=== PATIENT | female | born 1990 | race Two or more races ===

== ENCOUNTER 2017-12-22 17:00 | Emergency (ER) | payer OTHER ==
[~2017-12-22] VITALS: Ht 167.6 cm; Wt 92.5 kg
[2017-12-22 17:23] VITALS: BP 138/87
[2017-12-22] MEDS ORDERED: ACETAMINOPHEN ES 500 MG TABLET ONE (17:45)
--- NOTE | 2017-12-22 17:47 | NUR ---
technician support engineer at bedside
[2017-12-22] MEDS ORDERED: ACETAMINOPHEN ES 500 MG TABLET PO ONE (18:00)
== END 2017-12-22 18:14 | disposition home or self-care (01) ==
LOC: ER 17:01
DX: O9A.213 Injury, poisoning and certain other consequences of external causes complicating pregnancy, third trimester (principal); M54.5 Low back pain; R10.9 Unspecified abdominal pain; Z3A.36 36 weeks gestation of pregnancy; V43.62XA Car passenger injured in collision with other type car in traffic accident, initial encounter; Y93.89 Activity, other specified; Y92.410 Unspecified street and highway as the place of occurrence of the external cause; Y99.8 Other external cause status
CPT/HCPCS: 76805-TC; A4606; Z7610

== ENCOUNTER 2018-10-14 18:20 | Emergency (ER) | payer OTHER ==
[~2018-10-14] VITALS: Ht 165.1 cm; Wt 87.7 kg
[2018-10-14 18:30] VITALS: BP 138/99
== END 2018-10-14 18:53 | disposition home or self-care (01) ==
LOC: ER 18:21
DX: R11.2 Nausea with vomiting, unspecified (principal); R19.7 Diarrhea, unspecified

== ENCOUNTER 2023-09-24 00:58 | Emergency (ER) | payer BC, OTHER ==
[~2023-09-24] VITALS: Ht 165.1 cm; Wt 94.3 kg
[2023-09-24 02:04] VITALS: TEMP 97.4
[2023-09-24] MEDS ORDERED: IBUPROFEN 400 MG TABLET PO ONE (02:30)
[2023-09-24 02:46] VITALS: BP 134/89; O2SAT 98
== END 2023-09-24 02:47 | disposition home or self-care (01) ==
LOC: ER 01:06
DX: M54.6 Pain in thoracic spine (principal)